=== PATIENT | female | born 1980 | race Caucasian/White ===

== ENCOUNTER 2021-02-10 19:27 | Emergency (ER) | payer OTHER, SELFPAY ==
[2021-02-10 19:38] VITALS: BP 122/72; PULSE 99; RESP 20; TEMP 36.8; O2SAT 96
--- NOTE | 2021-02-10 19:58 | ED.GENADULT ---
HPI - General Adult General Chief complaint: Ear Stated complaint: Bump in right Ear Source: patient Mode of arrival: ambulatory Limitations: no limitations History of Present Illness HPI narrative: Patient presents for evaluation of a bump in her right ear for the last 6 days. She states she spoke with the provider who was performing a physical on her earlier this week was told to apply warm compresses. Her uncle is a nurse and attempted to francesco the area. She states that some sanguinous drainage emerged from within the lesion. No fever, chills, nausea, vomiting, purulence from affected area. No hearing loss, tinnitus. No additional complaints or concerns. Related Data Allergies Allergy/AdvReac Type Severity Reaction Status Date / Time doxycycline Allergy Unknown Unknown Verified 02/10/21 19:57 famciclovir Allergy Unknown Unknown Verified 02/10/21 19:57 Penicillins Allergy Unknown Unknown Verified 02/10/21 19:57 Sulfa (Sulfonamide Allergy Unknown Unknown Verified 02/10/21 19:57 Antibiotics) tramadol Allergy Unknown Unknown Verified 02/10/21 19:57 OXYCODONE HCL Allergy Unknown Unknown Uncoded 02/10/21 19:57 Review of Systems Review of Systems: Narrative: CONSTITUTIONAL: Denies fever, chills, or sweats. EYES: Denies visual changes, redness, or discharge. ENT: Reports right-sided otalgia. Denies rhinorrhea, congestion, sore throat, CARDIOVASCULAR: Denies chest pain, palpitations, or edema. RESPIRATORY: Denies cough or dyspnea. GASTROINTESTINAL: Denies abdominal pain, nausea, vomiting, or diarrhea. GENITOURINARY: Denies dysuria or hematuria. SKIN: Reports painful lesion inside right ear. Denies rash or itching. MUSCULOSKELETAL: Denies back pain, joint pain, or myalgia. NEUROLOGIC: Denies headache, numbness, dizziness, or weakness. PSYCHIATRIC: Denies anxiety or depression. [facility] Past Medical History Medical History No pertinent past medical history Surgical History Surgical History No pertinent past surgical history Family History Family History (Updated 02/10/21 @ 20:00 by JACKIE Syed, ) Mother No significant past medical history Social History Social History Smoking status: Never smoker Substance use: never Gender identity (if verbalized by the patient): Female Spiritual care concerns: No Exam Narrative: Exam Narrative: GENERAL: Well-appearing, well-nourished, and in no acute distress. HEAD: Normocephalic, atraumatic. EYES: PERRLA and EOMI. ENT: Nares clear, no rhinorrhea or epistaxis. Mucous membranes moist. Oropharynx without tonsillar hypertrophy exudate or other lesions. Bilateral TMs pearly alvarez nonbulging NECK: Supple. No adenopathy or masses. No carotid bruits or JVD CHEST: Clear to auscultation. No respiratory distress. No wheezes rales or rhonchi HEART: Regular rate and rhythm. No murmur heard. Normal peripheral pulses. ABDOMEN: Soft, nontender, nondistended, normal active bowel sounds. EXTREMITIES: Normal range of motion. No edema. SKIN: Approximately 3 mm raised skin colored lesion in the right ear canal adjacent to the tragus with scant amount of sanguinous drainage noted. Warm, dry, no rash. NEURO: No focal deficits. Alert and oriented x3. PSYCH: Normal mood and affect. Course Course Emergency Course: This is a 40-year-old female that presents with complaints of a painful lesion in her right ear canal for 6 days and was attempted to be drained by her uncle. She appears to have a small pustule which will treat with oral clindamycin and otic fluoroquinolone. Vital Signs Vital signs: Vital Signs Temperature 36.8 C 02/10/21 19:38 Pulse Rate 99 02/10/21 19:38 Respiratory Rate 20 02/10/21 19:38 Blood Pressure 122/72 02/10/21 19:38 Pulse Oximetry 96 02/10/21 19:38 T
== END 2021-02-10 20:29 | disposition home or self-care (01) ==
PROVIDERS: Emergency Provider Nurse Practitioner; PCP Family Medicine
DX: H60.01 Abscess of right external ear (principal)
CPT/HCPCS: 99213; G0463

== ENCOUNTER 2021-02-13 21:55 | Emergency (ER) | payer OTHER, SELFPAY ==
--- NOTE | ~2021-02-13 | XR_ITS ---
EXAMINATION: XR chest 1V portable EXAM DATE: 02/13/2021 22:21 INDICATION: Chest tightness, Midsternal Cp, Hx Covid 04/2020. TECHNIQUE: Portable AP frontal chest x-ray was obtained. Comparison is made to prior examination from 10/04/2012. FINDINGS: The lungs are clear. There are no pleural effusions. Cardiac silhouette is prominent but magnified on this AP technique. There is no pneumothorax suspected. The bones and soft tissues are unremarkable. IMPRESSION: No acute cardiopulmonary findings. Reviewed, dictated and finalized at location G.
--- NOTE | 2021-02-13 21:56 | ECG_ITS ---
Measurements Intervals [place] Rate: 87 P: 48 WV: 192 QRS: 3 QRSD: 84 T: 12 QT: 390 QTc: 470 Interpretive Statements SINUS RHYTHM EARLY PRECORDIAL R/S TRANSITION LOW QRS VOLTAGE IN PRECORDIAL LEADS BORDERLINE T WAVE ABNORMALITY- INFERIOR LEADS BASELINE ARTIFACT- I, II BORDERLINE ECG Electronically Signed On 02-14-2021 6:29:16 CDT by Didier Parker D.O.
[2021-02-13 21:58] VITALS: BP 117/76; PULSE 82; RESP 18; TEMP 36.5; O2SAT 100
[2021-02-13 22:03] VITALS: BP 117/76; PULSE 82; RESP 18; TEMP 36.5; O2SAT 100
[2021-02-13 22:07] VITALS: PULSE 82
--- NOTE | 2021-02-13 22:24 | ED.CHESTPAIN ---
HPI - Chest Pain General Chief Complaint: Chest Pain Stated Complaint: tightness in chest Time Seen by Provider: 02/13/21 22:10 Source: patient Mode of arrival: ambulatory Limitations: no limitations History of Present Illness HPI narrative: This is a 40 year old female that presents to the ER for chest pain present since dinner tonight. Reports she was watching the [employer] game and talking on the phone with her mom. The pain is worse with deep breathing. Feels like a pressure. Denies fever, cough or lower extremity edema. Related Data Allergies Allergy/AdvReac Type Severity Reaction Status Date / Time doxycycline Allergy Unknown Unknown Verified 02/13/21 22:08 famciclovir Allergy Unknown Unknown Verified 02/13/21 22:08 Penicillins Allergy Unknown Unknown Verified 02/13/21 22:08 Sulfa (Sulfonamide Allergy Unknown Unknown Verified 02/13/21 22:08 Antibiotics) tramadol Allergy Unknown Unknown Verified 02/13/21 22:08 OXYCODONE HCL Allergy Unknown Unknown Uncoded 02/10/21 19:57 Review of Systems Review of Systems: Narrative: CONSTITUTIONAL: Denies fever CARDIOVASCULAR: Reports chest pain. Denies edema. RESPIRATORY: Denies cough or dyspnea. All systems reviewed & are unremarkable except as noted in HPI and below PMFSH Past Medical History Medical History No pertinent past medical history Surgical History Surgical History No pertinent past surgical history Family History Family History (Updated 02/10/21 @ 20:00 by ALIS SyedP, ) Mother No significant past medical history Social History Social History Smoking status: Never smoker Substance use: never Gender identity (if verbalized by the patient): Female Spiritual care concerns: No Exam Narrative: Exam Narrative: GENERAL: Well-appearing, obese, and in no acute distress. HEAD: Normocephalic, atraumatic. EYES: EOMI. ENT: Nares clear, no rhinorrhea or epistaxis. Mucous membranes moist. Oropharynx without tonsillar hypertrophy exudate or other lesions. Bilateral TMs pearly alvarez non-bulging. Small cystic lesion present in the right external auditory canal, no overlying erythema NECK: Supple. No adenopathy or masses. CHEST: Clear to auscultation. No respiratory distress. No wheezes rales or rhonchi. Tender to palpation over the sternum HEART: Regular rate and rhythm. No murmur heard. Normal peripheral pulses. EXTREMITIES: Normal range of motion. No edema. SKIN: Warm, dry, no rash. NEURO: No focal deficits. Alert and oriented x3. PSYCH: Normal mood and affect Course Vital Signs Vital signs: Vital Signs Temperature 97.7 F 02/13/21 21:58 Pulse Rate 82 02/13/21 21:58 Respiratory Rate 18 02/13/21 21:58 Blood Pressure 117/76 02/13/21 21:58 Pulse Oximetry 100 02/13/21 21:58 Temperature 97.7 F 02/13/21 22:03 Pulse Rate 87 02/14/21 00:08 Respiratory Rate 18 02/14/21 00:08 Blood Pressure 120/62 02/14/21 00:08 Pulse Oximetry 99 02/14/21 00:08 MDM - Chest Pain MDM Narrative Medical decision making narrative: Patient presents to the emergency department for an episode of chest pain at night. Worse with breathing. Patient tender to palpation in the area. Likely more musculoskeletal in nature. Her vitals are stable. Oxygen saturation is normal on room air. Heart rate is normal. CBC and metabolic panel without concerning findings. EKG with nonspecific ST changes. Her baseline troponin is negative. Once again pain does seem more musculoskeletal in nature and she is tender palpation in the area. Reports relief with Toradol. Heart score is a 2. PERC criteria negative. Patient is stable and felt appropriate for further outpatient evaluation. She is to follow-up with her primary care doctor. She was given warnings to return to th
[2021-02-13 22:56] LABS: Basophils Percent Auto 0.4 % (0.2-1.2); Eosinophils Absolute Auto 0.1 K/mm3 (0-0.3); Eosinophils Percent Auto 1.2 % (0-4.4); Hematocrit 36.3 % (37.0-47.0); Immature Granulocyte Percent A 1.9 % (0-0.5); Lymphocytes Absolute Auto 2.59 K/mm3 (0.9-3.2); Lymphocytes Percent Auto 24.4 % (18.3-44.2); Mean Corpuscular HGB Conc 27.5 g/dl (32-36); Mean Corpuscular Hemoglobin 23.9 pg (26-34); Mean Corpuscular Volume 86.6 fl (80-100); Mean Platelet Volume 9.3 fl (7.4-10.4); Monocytes Absolute Auto 0.6 K/mm3 (0.1-0.6); Monocytes Percent Auto 5.6 % (2.6-8.5); Neutrophils Absolute Auto 7.1 K/mm3 (1.3-6.7); Neutrophils Percent Auto 66.5 % (45.5-73.1); Nucleated Red Blood Cells Perc 0.3 % (0.0-0.2); Platelet Count Result 321 k/mm3 (150-375); Red Blood Count 4.19 M/mm3 (4.2-5.4); Red Cell Distribution Width 21.6 % (11.5-14.5); White Blood Count 10.6 K/mm3 (4.5-10.0)
[2021-02-13 23:14] LABS: Anion Gap 7 mmol/L (8-16); Blood Urea Nitrogen 9 mg/dL (7-17); Calcium 8.9 mg/dL (8.4-10.2); Carbon Dioxide 26 mmol/L (22-30); Chloride 108 mmol/L (98-107); Estimated CRCL calculation 133 ml/min; Estimated Glomerular Filt Rate > 60; Glucose 83 mg/dL (65-110); Potassium 3.9 mmol/L (3.4-5.0); Sodium 141 mmol/L (137-145)
[2021-02-13 23:17] VITALS: BP 128/72; PULSE 82; RESP 17; O2SAT 95
[2021-02-13 23:18] LABS: Partial Thromboplastin Time 27.3 SECONDS (22.3-36.8)
[2021-02-13] MEDS: KETOROLAC 30 MG/ML VIAL (*BKC) IV PUSH (23:19)
[2021-02-13 23:23] LABS: Platelet Estimate Adequate (Adequate)
[2021-02-13 23:24] LABS: Anisocytosis 1+ (NORMAL)
[2021-02-13 23:26] LABS: Troponin I < 0.012 ng/mL (0.000-0.034)
[2021-02-14 00:08] VITALS: BP 120/62; PULSE 87; RESP 18; O2SAT 99
[2021-02-14 01:00] VITALS: BP 107/56; PULSE 85; RESP 16; O2SAT 99
== END 2021-02-14 01:05 | disposition home or self-care (01) ==
PROVIDERS: Emergency Provider Emergency Medicine; PCP Family Medicine
DX: R07.9 Chest pain, unspecified (principal); D64.9 Anemia, unspecified; Q18.1 Preauricular sinus and cyst
CPT/HCPCS: 36415; 71045; 80048; 84484; 85025; 85610; 85730; 93005; 96374; 99284; J1885

== ENCOUNTER 2021-03-05 14:51 | Emergency (ER) | payer OTHER, SELFPAY ==
--- NOTE | ~2021-03-05 | XR_ITS ---
EXAMINATION: XR knee RT min 4V DATE: 03/05/2021 15:29 INDICATION: Right knee injury and pain. TECHNIQUE: 4 views of right knee were obtained. COMPARISON: Right knee radiographs 11/23/2010 FINDINGS: Bone alignment is normal. No fracture. Joint spaces are well maintained. There is no knee j oint effusion. IMPRESSION: 1. Normal right knee. Reviewed, dictated and finalized at location A. IMPRESSION: 1. Normal right knee.
--- NOTE | ~2021-03-05 | XR_ITS ---
EXAMINATION: XR ankle LT min 3V DATE: 03/05/2021 15:29 INDICATION: Left ankle pain TECHNIQUE: Anteroposterior, lateral, mortise, and additional oblique view of the ankle were obtained. COMPARISON: 07/05/2018 FINDINGS: There is no fracture, dislocation, or subluxation. The soft tissues and joint spaces are no rmal. A posterior calcaneal enthesophyte is noted. IMPRESSION: 1. No acute osseous abnormality. Reviewed, dictated and finalized at location B.
[2021-03-05 15:04] VITALS: BP 122/59; PULSE 96; RESP 16; TEMP 36.3; O2SAT 97
--- NOTE | 2021-03-05 16:59 | ED.LOWEXIN ---
HPI - Extremity Injury (Lower) General Chief Complaint: Extremity Injury, Lower Stated Complaint: fall/left ankle/right knee pain Time Seen by Provider: 03/05/21 16:23 History of Present Illness HPI Narrative: Patient presents with left ankle pain and right knee pain. Patient reports she was at work when she was stepping over a baby gate. Her back got caught on gait and she fell on her right knee and her left ankle was caught in the baby gate. She denies striking her head denies any loss of consciousness. She had pain to her knee and ankle so wanted to come in for evaluation. Denies any focal numbness or weakness. Short swelling to the left ankle and right knee. She denies any upper extremity pain neck pain or back pain. Related Data Home Medications Medication Instructions Recorded Confirmed methylprednisolone mg 03/05/21 Allergies Allergy/AdvReac Type Severity Reaction Status Date / Time doxycycline Allergy Unknown Unknown Verified 03/05/21 15:43 famciclovir Allergy Unknown Unknown Verified 03/05/21 15:43 Penicillins Allergy Unknown Unknown Verified 03/05/21 15:43 Sulfa (Sulfonamide Allergy Unknown Unknown Verified 03/05/21 15:43 Antibiotics) tramadol Allergy Unknown Unknown Verified 03/05/21 15:43 OXYCODONE HCL Allergy Unknown Unknown Uncoded 03/05/21 15:43 Review of Systems Review of Systems: CONSTITUTIONAL: Denies fever, chills, or sweats. EYES: Denies visual changes, redness, or discharge. ENT: Denies rhinorrhea, congestion, sore throat, or otalgia. CARDIOVASCULAR: Denies chest pain, palpitations, or edema. RESPIRATORY: Denies cough or dyspnea. GASTROINTESTINAL: Denies abdominal pain, nausea, vomiting, or diarrhea. GENITOURINARY: Denies dysuria or hematuria. SKIN: Denies rash or itching. MUSCULOSKELETAL: Denies back pain, joint pain, or myalgia. NEUROLOGIC: Denies headache, numbness, dizziness, or weakness. PSYCHIATRIC: Denies anxiety or depression. All systems reviewed & are unremarkable except as noted in HPI and below PMFSH Past Medical History Medical History No pertinent past medical history Surgical History Surgical History No pertinent past surgical history Family History Family History Mother No significant past medical history Social History Social History Smoking status: Never smoker Substance use: never Gender identity (if verbalized by the patient): Female Spiritual care concerns: No Exam Narrative: GENERAL: Well-appearing, well-nourished, and in no acute distress. HEAD: Normocephalic, atraumatic. EYES: PERRLA and EOMI. ENT: Nares clear, no rhinorrhea or epistaxis. Mucous membranes moist. NECK: Supple. No masses. No JVD EXTREMITIES: Normal range of motion however range of motion does elicit pain. There is mild edema to the left ankle there is bony tenderness on the lateral malleolus there is no obvious deformity or laxity in the joint. There are no open or draining wounds right knee has diffuse tenderness most notable on the anterior aspect. There is associated edema and moderate amount of ecchymoses. There is no obvious deformity and knee joint appears stable on anterior/posterior drawer as well as valgus varus stress SKIN: Warm, dry, no rash. NEURO: No focal deficits. Alert and oriented x3. PSYCH: Normal mood and affect. Course Vital Signs Vital signs: Vital Signs Temperature 36.3 C L 03/05/21 15:04 Pulse Rate 96 03/05/21 15:04 Respiratory Rate 16 03/05/21 15:04 Blood Pressure 122/59 L 03/05/21 15:04 Pulse Oximetry 97 03/05/21 15:04 Temperature 36.3 C L 03/05/21 15:04 Pulse Rate 84 03/05/21 18:27 Respiratory Rate 16 03/05/21 18:27 Blood Pressure 126/62 03/05/21 18:27 Pulse Oximetry 98 03/05/21 18:27
[2021-03-05 18:27] VITALS: BP 126/62; PULSE 84; RESP 16; O2SAT 98
== END 2021-03-05 16:35 | disposition home or self-care (01) ==
PROVIDERS: Emergency Provider Emergency Medicine; PCP Family Medicine
DX: S80.01XA Contusion of right knee, initial encounter (principal); M25.572 Pain in left ankle and joints of left foot; W01.0XXA Fall on same level from slipping, tripping and stumbling without subsequent striking against object, initial encounter
CPT/HCPCS: 73564; 73610; 99284

== ENCOUNTER 2021-04-03 13:12 | Outpatient (CLI) | payer OTHER, SELFPAY ==
--- NOTE | ~2021-04-03 | MR_ITS ---
EXAMINATION: MR knee RT wo con DATE: 04/03/2021 14:17 INDICATION: Right knee pain. TECHNIQUE: Magnetic resonance imaging (MRI) of the right knee was performed without intravenous contr ast. Sequences included axial PD-weighted FS FSE, coronal PD-weighted FSE and PD-weighted FS FSE, sag ittal PD-weighted FSE, and sagittal T2-weighted FS FSE. COMPARISON: Right knee radiographs 03/05/2021 FINDINGS: Medial compartment: Medial meniscus is normal. Medial compartment cartilage is normal. Lateral compartment: Lateral meniscus is normal. Lateral compartment cartilage is normal. Patellofemoral compartment: Patellar cartilage is normal. Trochlear cartilage is normal. Ligaments and tendons: The anterior and posterior cruciate ligaments are normal. Medial collateral ligament and lateral shweta ateral ligament complex are normal. The patellar tendon is normal. Fluid: There is a small knee joint effusion. IMPRESSION: 1. Small knee joint effusion. Reviewed, dictated and finalized at location A.
== END 2021-04-03 13:13 | disposition home or self-care (01) ==
LOC: ANHIMG 13:26
PROVIDERS: PCP Family Medicine; Visit Provider Physician Assistant Surgical
DX: M25.561 Pain in right knee (principal); M25.461 Effusion, right knee
CPT/HCPCS: 73721

== ENCOUNTER 2021-05-16 14:59 | Outpatient (CLI) | payer OTHER, SELFPAY ==
--- NOTE | ~2021-05-16 | CT_ITS ---
EXAMINATION: CTA chest PE protocol DATE: 05/16/2021 15:26 INDICATION: Chest pain and dizziness TECHNIQUE: Computed tomography angiography (CTA) of the chest was performed with 100 mL Omnipaque-350 intravenous contrast timed to evaluate the pulmonary arteries. Coronal maximum intensity projection 3D-reconstructions were created by the technologist. The dose-length product (DLP) was 828.97 mGy-cm. Automated exposure control and iterative reconstruction technique were employed. COMPARISON: 01/19/2017 FINDINGS: The pulmonary arteries are well-opacified. No pulmonary embolism is identified. There is at electasis of the left lower lobe. A small left pleural effusion is present. There is no pneumothorax. No pathologically enlarged thoracic lymph nodes are identified. The heart size is normal. There is a wedge-shaped area of hypoattenuation in the upper pole of the spleen. The gallbladder is surgically absent. IMPRESSION: 1. No pulmonary embolism. 2. 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 Andrew elate for left upper quadrant tenderness and any signs of infection. 3. Left lower lobe atelectasis and small left pleural effusion. Reviewed, dictated and finalized at location A. IMPRESSION: 1. No pulmonary embolism. 2. 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 Correlate for left upper quadrant tenderness and any signs of infection. 3. Left lower lobe atelectasis and small left pleural effusion.
== END 2021-05-16 15:00 | disposition home or self-care (01) ==
LOC: ANHIMG 15:04
PROVIDERS: PCP Family Medicine; Visit Provider Family Medicine
DX: R06.02 Shortness of breath (principal); R79.89 Other specified abnormal findings of blood chemistry; J90 Pleural effusion, not elsewhere classified
CPT/HCPCS: 71275; Q9967

== ENCOUNTER 2021-06-13 13:29 | Outpatient (CLI) | payer OTHER, SELFPAY ==
--- NOTE | ~2021-06-13 | CT_ITS ---
EXAMINATION: CT brain wo con DATE: 06/13/2021 13:46 INDICATION: Diplopia. TECHNIQUE: Computed tomography (CT) of the head was performed without intravenous contrast. The mA wa s adjusted according to patient size. Iterative reconstruction technique was employed. The dose-lengt h product was 529.67 mGy-cm. COMPARISON: None FINDINGS: There is no intracranial hemorrhage, acute infarction, or abnormal intracranial mass lesion . The ventricles are normal in size. The orbits are normal. The paranasal sinuses are clear. The mast oid air cells are normal. There are multiple peripherally calcified masses in the scalp, likely benig n. IMPRESSION: 1. Normal brain. Reviewed, dictated and finalized at location A. CTOR LEARNING IMPRESSION: 1. Normal brain.
== END 2021-06-13 13:30 | disposition home or self-care (01) ==
PROVIDERS: PCP Family Medicine; Visit Provider Family Medicine
DX: H53.2 Diplopia (principal)
CPT/HCPCS: 70450